=== PATIENT | female | born 1995 | race Two or more races ===

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

== ENCOUNTER 2018-02-22 01:11 | Emergency (ER) | payer OTHER ==
[~2018-02-22] VITALS: Ht 167.6 cm; Wt 74.4 kg
[2018-02-22 01:48] VITALS: BP 112/75
[2018-02-22] MEDS ORDERED: LIDOCAINE W/ EPINEPHRINE 1 % INJ 30ML ONE (02:03)
[2018-02-22] MEDS ORDERED: cefTRIAXone SOD 1,000 MG VL ONE (02:24)
[2018-02-22] MEDS ORDERED: cefTRIAXone SOD 1,000 MG VL IM ONE (02:30)
== END 2018-02-22 02:36 | disposition home or self-care (01) ==
LOC: ER 01:14
DX: S61.011A Laceration without foreign body of right thumb without damage to nail, initial encounter (principal); W26.8XXA Contact with other sharp object(s), not elsewhere classified, initial encounter; Y93.89 Activity, other specified; Y99.8 Other external cause status; Y92.89 Other specified places as the place of occurrence of the external cause
CPT/HCPCS: 12002; 96372; 99283; J0696; J2001

== ENCOUNTER 2018-12-26 00:18 | Emergency (ER) | payer MEDICAID, OTHER ==
[~2018-12-26] VITALS: Ht 160 cm; Wt 68.9 kg
[2018-12-26 00:47] VITALS: BP 114/71
[2018-12-26] MEDS ORDERED: IBUPROFEN 600 MG TAB PO ONE (04:45)
[2018-12-26] MEDS ORDERED: ACETAMINOPHEN/CODEINE#3 (300/30mg) TAB PO ONE (04:45)
== END 2018-12-26 05:25 | disposition home or self-care (01) ==
LOC: ER 00:18
DX: S80.02XA Contusion of left knee, initial encounter (principal); W01.198A Fall on same level from slipping, tripping and stumbling with subsequent striking against other object, initial encounter; Y93.89 Activity, other specified; Y99.0 Civilian activity done for income or pay; Y92.89 Other specified places as the place of occurrence of the external cause
CPT/HCPCS: 73560